=== PATIENT | male | born 1950 | race Caucasian/White ===

== ENCOUNTER 2016-04-06 03:09 | Emergency (ER) | payer MEDICARE ==
[~2016-04-06] VITALS: Ht 180.3 cm; Wt 111.1 kg
[~2016-04-06 03:09] MED LIST: BENA20TA2 PO; DIVA500T2 PO; LAMO200T39 PO; POTA-88 PO; PRIM250T PO; RISP0.252 PO; TAMS-12 PO; ZONI100C6 PO
[2016-04-06] MEDS ORDERED: LEVETIRACETAM (500MG) 500 MG/5 ML VIAL IV ONE (03:28)
[2016-04-06] MEDS ORDERED: IV NS 0.9% 100 ML IV ONE (03:28)
[2016-04-06] MEDS ORDERED: IV SET PRIMARY PUMP SET 1 EA INFUS.SET MC ONE (03:29)
[2016-04-06] MEDS ORDERED: LEVETIRACETAM (500MG) 500 MG in IV NS 0.9% 100 ML IV ONE (03:30)
[2016-04-06] MEDS ORDERED: IV NS 0.9% 1,000 ML ONE (03:32)
[2016-04-06] MEDS ORDERED: IV SET PRIMARY 1 EA INFUS.SET MC ONE (03:32)
[2016-04-06 03:36] LABS: BASOPHILS % (AUTO) 0.5 % (0.0-2.0); DIFF TOTAL % 100 %; EOSINOPHILS # (AUTO) 0.2 /CMM (0.0-0.7); EOSINOPHILS % (AUTO) 3.4 % (0.0-6.0); HEMATOCRIT 39 % (39-51); LYMPHOCYTES # (AUTO) 2.9 /CMM (0.8-4.8); LYMPHOCYTES % (AUTO) 51.9 % (20.0-44.0); MEAN CORPUSCULAR HEMOGLOBIN 30 PG (26.0-33.0); MEAN CORPUSCULAR HGB CONC 34 g/dl (31.0-36.0); MEAN CORPUSCULAR VOLUME 89 fL (80-96); MONOCYTES # (AUTO) 0.5 /CMM (0.1-1.30); NEUTROPHILS % (AUTO) 35.2 % (43.0-81.0); PLATELET COUNT (AUTO) 298 /CMM (150-450); RED BLOOD CELL COUNT(AUTO) 4.38 MIL/uL (4.5-6.0); WHITE BLOOD COUNT (AUTO) 5.6 K/uL (4.3-11.0)
[2016-04-06 03:46] LABS: ANION GAP 11 (5-14); CALCIUM, SERUM 8.8 mg/dL (8.5-10.1); CARBON DIOXIDE 30 mmol/L (21-32); CHLORIDE 97 mmol/L (98-107); CREATININE 0.9 mg/dL (0.6-1.3); GFR 84 mL/min (>60); GLUCOSE 90 mg/dL (74-106); POTASSIUM 4.3 mmol/L (3.5-5.1); SODIUM SERUM 134 mmol/L (136-145); UREA NITROGEN, BLOOD 12 mg/dL (7-18)
[2016-04-06 03:52] LABS: ALANINE AMINOTRANSFERASE 18 U/L (12-78); ALBUMIN 3.3 g/dL (3.4-5.0); ASPARTATE AMINOTRANSFERASE 12 U/L (15-37); BILIRUBIN,DIRECT 0.1 mg/dL (0.0-0.2); BILIRUBIN,TOTAL 0.2 mg/dL (0.2-1.0); INDIRECT BILIRUBIN 0.1 mg/dL (0.0-1.1); TOTAL PROTEIN, SERUM 7.2 g/dL (6.4-8.2)
[2016-04-06] MEDS ORDERED: IV NS 0.9% 1,000 ML BAG IV ONE (04:00)
[2016-04-06 04:08] LABS: INR 0.96 (0.87-1.13); PROTHROMBIN TIME 10.4 SECS (9.5-12.7)
[2016-04-06 04:20] LABS: ADD UA MICROSCOPIC NO; KETONES,URINE NEGATIVE (NEGATIVE); LEUKOCYTE ESTERASE ,URINE NEGATIVE (NEGATIVE)
[2016-04-06 04:50] LABS: CANNABINOID, URINE NEGATIVE (NEGATIVE); PHENCYCLIDINE SCREEN,URINE NEGATIVE (NEGATIVE)
[2016-04-06 04:55] VITALS: BP 143/73
== END 2016-04-06 04:56 | disposition home or self-care (01) ==
LOC: ER 03:11
DX: G40.909 Epilepsy, unspecified, not intractable, without status epilepticus (principal); I10 Essential (primary) hypertension; Z88.8 Allergy status to other drugs, medicaments and biological substances; R79.1 Abnormal coagulation profile
CPT/HCPCS: 36415; 71010; 80048; 80076; 80305; 81001; 82962; 85025; 85730; 93005; 96365; 99285; A4606; G0481; J1953; J7030 ×2; 81000-TC; G6040-TC; Z7610

== ENCOUNTER 2016-04-20 15:33 | Emergency (ER) | payer MEDICARE ==
[~2016-04-20] VITALS: Ht 182.9 cm; Wt 136.1 kg
[~2016-04-20 15:33] MED LIST changes: -RISP0.252 PO; +RISP0.253 PO
[2016-04-20] MEDS ORDERED: HYDROCODONE/APAP 5/325MG 1 EACH TABLET PO ONE (16:00)
[2016-04-20] MEDS ORDERED: DIVALPROEX SODIUM 500 MG TABLET.DR PO ONE ×2 (16:00)
[2016-04-20] MEDS ORDERED: LamoTRIgine 100 MG TABLET PO SCH (16:00)
[2016-04-20 19:06] VITALS: BP 141/68
== END 2016-04-20 19:07 | disposition home or self-care (01) ==
LOC: ER 15:38
DX: S22.31XA Fracture of one rib, right side, initial encounter for closed fracture (principal); R56.9 Unspecified convulsions; I10 Essential (primary) hypertension; Z88.8 Allergy status to other drugs, medicaments and biological substances; W19.XXXA Unspecified fall, initial encounter; Y93.89 Activity, other specified; Y92.89 Other specified places as the place of occurrence of the external cause; Y99.8 Other external cause status
CPT/HCPCS: 71250-TC; A4606; Z7610

== ENCOUNTER 2016-05-03 12:39 | Emergency (ER) | payer MEDICARE ==
[~2016-05-03] VITALS: Ht 182.9 cm; Wt 133.8 kg
[2016-05-03] MEDS ORDERED: MECLIZINE HCL 25 MG TABLET PO ONE (13:00)
[2016-05-03] MEDS ORDERED: MECLIZINE HCL 25 MG TABLET ONE (13:01)
[2016-05-03 13:16] LABS: BASOPHILS % (AUTO) 0.6 % (0.0-2.0); DIFF TOTAL % 100 %; EOSINOPHILS # (AUTO) 0.1 /CMM (0.0-0.7); EOSINOPHILS % (AUTO) 1.9 % (0.0-6.0); HEMATOCRIT 41 % (39-51); HEMOGLOBIN 13.3 g/dL (13.5-17.5); LYMPHOCYTES # (AUTO) 2.1 /CMM (0.8-4.8); LYMPHOCYTES % (AUTO) 32.1 % (20.0-44.0); MEAN CORPUSCULAR HEMOGLOBIN 29 PG (26.0-33.0); MEAN CORPUSCULAR HGB CONC 32 g/dl (31.0-36.0); MEAN CORPUSCULAR VOLUME 89 fL (80-96); MONOCYTES # (AUTO) 0.6 /CMM (0.1-1.30); MONOCYTES % (AUTO) 9.4 % (2.0-12.0); NEUTROPHILS # (AUTO) 3.7 /CMM (1.8-8.9); PLATELET COUNT (AUTO) 389 /CMM (150-450); RED BLOOD CELL COUNT(AUTO) 4.63 MIL/uL (4.5-6.0); WHITE BLOOD COUNT (AUTO) 6.5 K/uL (4.3-11.0)
[2016-05-03 13:26] LABS: ANION GAP 9 (5-14); CALCIUM, SERUM 9.1 mg/dL (8.5-10.1); CARBON DIOXIDE 31 mmol/L (21-32); CHLORIDE 102 mmol/L (98-107); CREATININE 1.1 mg/dL (0.6-1.3); GFR 67 mL/min (>60); GLUCOSE 75 mg/dL (74-106); POTASSIUM 4.4 mmol/L (3.5-5.1); SODIUM SERUM 138 mmol/L (136-145); UREA NITROGEN, BLOOD 15 mg/dL (7-18)
[2016-05-03 13:35] LABS: TROPONIN I < 0.017 ng/mL (0.00-0.056)
[2016-05-03 14:14] LABS: ADD UA MICROSCOPIC NO; KETONES,URINE NEGATIVE (NEGATIVE); LEUKOCYTE ESTERASE ,URINE NEGATIVE (NEGATIVE)
[2016-05-03 16:08] VITALS: BP 122/78
== END 2016-05-03 16:09 | disposition home or self-care (01) ==
LOC: ER 12:41
DX: R53.1 Weakness (principal); G40.909 Epilepsy, unspecified, not intractable, without status epilepticus; I10 Essential (primary) hypertension; F31.9 Bipolar disorder, unspecified; N40.0 Benign prostatic hyperplasia without lower urinary tract symptoms; Z88.8 Allergy status to other drugs, medicaments and biological substances
CPT/HCPCS: 36415; 71010; 80048; 80164; 81001; 84484; 85025; 93005; 99285; A4606; J8597; 81000-TC; Z7610

== ENCOUNTER 2016-08-08 15:47 | Emergency (ER) | payer MEDICARE, MEDICAID ==
[~2016-08-08] VITALS: Ht 175.3 cm; Wt 74.8 kg
--- NOTE | 2016-08-08 16:09 | NUR ---
BIB EMS FROM [facility] FOR BILATERAL LOWER EXTREMITY EDEMA. PLACED ON MONITOR. GOWNED PT VSS AWAITING MD ORDER
[2016-08-08] MEDS ORDERED: AMLO5TAB2 PO (16:11)
[2016-08-08] MEDS ORDERED: DIVA250T6 PO (16:11)
[2016-08-08] MEDS ORDERED: LEVE250T2 PO (16:11)
[2016-08-08] MEDS ORDERED: DOCU-25 PO (16:11)
[2016-08-08] MEDS ORDERED: HYDR-3326 PO (16:11)
[2016-08-08] MEDS ORDERED: SERT25TA5 PO (16:11)
[2016-08-08] MEDS ORDERED: FURO20TA4 PO (16:11)
--- NOTE | 2016-08-08 16:15 | NUR ---
DR ROSEN AT BEDSIDE FOR EVAL
--- NOTE | 2016-08-08 16:19 | NUR ---
POULTRY DEBEAKER AT BEDSIDE BLOOD SAMPLE COLLECTED
[2016-08-08 16:26] LABS: BASOPHILS % (AUTO) 0.6 % (0.0-2.0); EOSINOPHILS # (AUTO) 0.1 /CMM (0.0-0.7); EOSINOPHILS % (AUTO) 2.3 % (0.0-6.0); HEMATOCRIT 36 % (39-51); HEMOGLOBIN 12.4 g/dL (13.5-17.5); LYMPHOCYTES # (AUTO) 2.4 /CMM (0.8-4.8); LYMPHOCYTES % (AUTO) 39.7 % (20.0-44.0); MEAN CORPUSCULAR HEMOGLOBIN 30 PG (26.0-33.0); MEAN CORPUSCULAR HGB CONC 35 g/dl (31.0-36.0); MEAN CORPUSCULAR VOLUME 88 fL (80-96); MONOCYTES # (AUTO) 0.6 /CMM (0.1-1.30); MONOCYTES % (AUTO) 9.9 % (2.0-12.0); NEUTROPHILS # (AUTO) 2.9 /CMM (1.8-8.9); NEUTROPHILS % (AUTO) 47.5 % (43.0-81.0); PLATELET COUNT (AUTO) 316 /CMM (150-450); RDW COEFFICIENT OF VARIATION 13.4 (11.5-15.0); RED BLOOD CELL COUNT(AUTO) 4.09 MIL/uL (4.5-6.0)
[2016-08-08 16:35] LABS: CALCIUM, SERUM 8.7 mg/dL (8.5-10.1); CREATININE 0.8 mg/dL (0.6-1.3); POTASSIUM 4.2 mmol/L (3.5-5.1)
--- NOTE | 2016-08-08 16:40 | NUR ---
HARBOR MASTER AT BEDSIDE FOR EVAL
--- NOTE | 2016-08-08 17:20 | NUR ---
CALLED [facility] FOR AMBULANCE ETA 30-45 MINUTES
[2016-08-08 17:22] VITALS: BP 158/83
--- NOTE | 2016-08-08 17:23 | NUR ---
Patient discharged to home in stable condition. Written and verbal after care instructions given. Patient verbalizes understanding of instruction. Pt going back to [facility] via ambulance
== END 2016-08-08 18:13 | disposition home or self-care (01) ==
LOC: ER 15:49
DX: R60.0 Localized edema (principal); F31.9 Bipolar disorder, unspecified; G40.909 Epilepsy, unspecified, not intractable, without status epilepticus; I10 Essential (primary) hypertension; N40.0 Benign prostatic hyperplasia without lower urinary tract symptoms; Z88.8 Allergy status to other drugs, medicaments and biological substances
CPT/HCPCS: 36415; 80048; 83880; 85025; 93970; 99285; A4606; Z7610

== ENCOUNTER 2016-08-20 10:12 | Emergency (ER) | payer MEDICARE, MEDICAID ==
[~2016-08-20] VITALS: Ht 185.4 cm; Wt 132.9 kg
[~2016-08-20 10:12] MED LIST changes: +AMLO5TAB2 PO; +DIVA250T6 PO; -DIVA500T2 PO; +DOCU-25 PO; +FURO20TA4 PO; +HYDR-3326 PO; +LEVE250T2 PO; -POTA-88 PO; +SERT25TA5 PO
--- NOTE | 2016-08-20 10:32 | NUR ---
FIDEL FROM [facility] DUE TO SEIZURE EPISODE, PATIENT RECEIVED AAO4. APPEARS IN NO APPARENT DISTRESS, RESPIRATION EVEN AND UNLABORED. PATIENT DENIES CHEST PAIN, NO SOB NOTED. SKIN IS WARM TO TOUCH AND NON DIAPHORETIC; PT IS AFEBRILE. VSS. SEIZURE PRECAUTION OBSERVED
--- NOTE | 2016-08-20 10:34 | NUR ---
IV ACCESSED TO LAC 20. BLOOD SAMPLE SENT TO LAB
[2016-08-20 10:39] LABS: BASOPHILS % (AUTO) 0.3 % (0.0-2.0); EOSINOPHILS % (AUTO) 0.8 % (0.0-6.0); HEMATOCRIT 37 % (39-51); HEMOGLOBIN 12.6 g/dL (13.5-17.5); LYMPHOCYTES # (AUTO) 1.6 /CMM (0.8-4.8); LYMPHOCYTES % (AUTO) 27.9 % (20.0-44.0); MEAN CORPUSCULAR HEMOGLOBIN 30 PG (26.0-33.0); MEAN CORPUSCULAR HGB CONC 34 g/dl (31.0-36.0); MEAN CORPUSCULAR VOLUME 89 fL (80-96); MONOCYTES # (AUTO) 0.6 /CMM (0.1-1.30); MONOCYTES % (AUTO) 9.9 % (2.0-12.0); NEUTROPHILS # (AUTO) 3.6 /CMM (1.8-8.9); NEUTROPHILS % (AUTO) 61.1 % (43.0-81.0); PLATELET COUNT (AUTO) 318 /CMM (150-450); RDW COEFFICIENT OF VARIATION 14.3 (11.5-15.0); RED BLOOD CELL COUNT(AUTO) 4.21 MIL/uL (4.5-6.0); WHITE BLOOD COUNT (AUTO) 5.9 K/uL (4.3-11.0)
[2016-08-20 11:20] LABS: CALCIUM, SERUM 9.1 mg/dL (8.5-10.1); POTASSIUM 4.5 mmol/L (3.5-5.1)
--- NOTE | 2016-08-20 11:47 | NUR ---
CALLED FOR FOOD TRAY
--- NOTE | 2016-08-20 12:01 | NUR ---
CALLED [facility] FOR TRANSPORT TO [facility] ETA 90 MIN
[2016-08-20 13:17] VITALS: BP 120/64
[2016-08-24 07:08] LABS: LAMOTRIGINE 6.3 ug/mL (2.0-20.0)
== END 2016-08-20 13:22 ==
LOC: ER 10:13
DX: G40.909 Epilepsy, unspecified, not intractable, without status epilepticus (principal); I10 Essential (primary) hypertension; F31.9 Bipolar disorder, unspecified; N40.0 Benign prostatic hyperplasia without lower urinary tract symptoms; Z88.8 Allergy status to other drugs, medicaments and biological substances
CPT/HCPCS: 36415; 80048; 80164; 82542 ×2; 85025; 99284; A4606; Z7610

== ENCOUNTER 2016-09-22 09:49 | Emergency (ER) | payer MEDICARE, MEDICAID ==
[~2016-09-22] VITALS: Ht 182.9 cm; Wt 113.4 kg
[2016-09-22 10:21] LABS: BASOPHILS % (AUTO) 0.3 % (0.0-2.0); EOSINOPHILS % (AUTO) 0.6 % (0.0-6.0); HEMATOCRIT 42 % (39-51); HEMOGLOBIN 12.6 g/dL (13.5-17.5); LYMPHOCYTES % (AUTO) 15.8 % (20.0-44.0); MEAN CORPUSCULAR HEMOGLOBIN 27 PG (26.0-33.0); MEAN CORPUSCULAR HGB CONC 30 g/dl (31.0-36.0); MEAN CORPUSCULAR VOLUME 88 fL (80-96); MONOCYTES % (AUTO) 7.3 % (2.0-12.0); PLATELET COUNT (AUTO) 358 /CMM (150-450); RDW COEFFICIENT OF VARIATION 13.1 (11.5-15.0); RED BLOOD CELL COUNT(AUTO) 4.74 MIL/uL (4.5-6.0)
[2016-09-22 10:22] LABS: LYMPHOCYTES # (AUTO) 1.1 /CMM (0.8-4.8); MONOCYTES # (AUTO) 0.5 /CMM (0.1-1.30); NEUTROPHILS # (AUTO) 5.4 /CMM (1.8-8.9)
[2016-09-22 10:30] LABS: CALCIUM, SERUM 9.3 mg/dL (8.5-10.1); CARBON DIOXIDE 31 mmol/L (21-32); CHLORIDE 98 mmol/L (98-107); CREATININE 1.1 mg/dL (0.6-1.3); GLUCOSE 89 mg/dL (74-106); POTASSIUM 4.8 mmol/L (3.5-5.1); SODIUM SERUM 134 mmol/L (136-145); UREA NITROGEN, BLOOD 13 mg/dL (7-18)
[2016-09-22 10:34] LABS: INR 0.96 (0.87-1.13)
[2016-09-22 10:35] LABS: ALANINE AMINOTRANSFERASE 16 U/L (12-78); ALBUMIN 3.5 g/dL (3.4-5.0); ALCOHOL, BLOOD < 3 mg/dL (0-0); ALKALINE PHOSPHATASE 127 U/L (46-116); ASPARTATE AMINOTRANSFERASE 15 U/L (15-37); BILIRUBIN,DIRECT 0.1 mg/dL (0.0-0.2); BILIRUBIN,TOTAL 0.3 mg/dL (0.2-1.0); TOTAL PROTEIN, SERUM 7.8 g/dL (6.4-8.2)
[2016-09-22 10:37] LABS: VALPROIC ACID 26 ug/mL (50-100)
--- NOTE | 2016-09-22 11:20 | NUR ---
CALLED [facility] TO FOLLOW UP ON READ OF CTS
--- NOTE | 2016-09-22 11:47 | NUR ---
CALLED RADIOLOGY AND SPOKE WITH VANESSA TO FOLLOW UP ON CHEST X RAY. THEY ARE EXPERIENCING SOME TECHNICAL ISSUES AND SHE IS WORKING ON IT
[2016-09-22] MEDS ORDERED: IV SET PRIMARY PUMP SET 1 EA INFUS.SET MC ONE (11:59)
[2016-09-22] MEDS ORDERED: LEVETIRACETAM (500MG) 1,000 MG in IV NS 0.9% 100 ML IV SCH (12:00)
--- NOTE | 2016-09-22 12:11 | NUR ---
CALLED [facility] FOR TRANSPORT ETA 45 MINUTES
[2016-09-22 13:08] VITALS: BP 131/72
--- NOTE | 2016-09-22 13:09 | NUR ---
Patient discharged to home in stable condition. Written and verbal after care instructions given. Patient verbalizes understanding of instruction. IV removed. Catheter intact and site benign. Pressure and 4x4 applied to site. No bleeding noted. NAD NOTED UPON TRANSPORT OUT.
== END 2016-09-22 13:08 | disposition home or self-care (01) ==
LOC: ER 09:51
DX: G40.909 Epilepsy, unspecified, not intractable, without status epilepticus (principal); M54.2 Cervicalgia; M54.5 Low back pain; M54.6 Pain in thoracic spine; R51 Headache; F31.9 Bipolar disorder, unspecified; I10 Essential (primary) hypertension; M48.06 Spinal stenosis, lumbar region; N40.0 Benign prostatic hyperplasia without lower urinary tract symptoms; Z88.8 Allergy status to other drugs, medicaments and biological substances
CPT/HCPCS: 36415; 70450-TC; 71010-TC; 72125-TC; 72128-TC; 72131-TC; 80048-TC; 80076-TC; 80164-TC; 80305; 85025-TC; 85730-TC; A4606; G0480; J1953; J7030; Z7610

== ENCOUNTER 2016-12-09 05:09 | Emergency (ER) | payer MEDICARE, MEDICAID ==
[~2016-12-09] VITALS: Ht 180.3 cm; Wt 104.3 kg
[~2016-12-09 05:09] MED LIST changes: -AMLO5TAB2 PO; +IBUP-1481 PO; +POTA20TA83 PO
--- NOTE | 2016-12-09 05:11 | NUR ---
PT [facility] FROM [facility]. PER EMS "SEIZURE OR MANAGER"; POSTICTAL; NO TRAUMA NOTED. PT AOX3 RR EVEN AND UNLABORED. NO SOB NOTED. NAD NOTED. NO NVD AT THIS TIME. PT PLACED ON MONITOR WAITING FOR MD GUERRERO.
--- NOTE | 2016-12-09 05:12 | NUR ---
PT PLACED ON SEIZURE PRECAUTION.
--- NOTE | 2016-12-09 05:23 | NUR ---
LABS DRAWNS AT BEDSIDE, SENT TO LAB
--- NOTE | 2016-12-09 05:31 | NUR ---
URINE COLLECTED CALLED FOR DATA WAREHOUSE ADMINISTRATOR
--- NOTE | 2016-12-09 05:32 | NUR ---
RADIOLOGY FOR BED SIDE FOR CXR
--- NOTE | 2016-12-09 05:33 | NUR ---
PT TO RADIOLOGY FOR CT HEAD
[2016-12-09 05:38] LABS: BASOPHILS % (AUTO) 0.5 % (0.0-2.0); EOSINOPHILS # (AUTO) 0.2 /CMM (0.0-0.7); EOSINOPHILS % (AUTO) 1.9 % (0.0-6.0); HEMATOCRIT 37 % (39-51); HEMOGLOBIN 12.4 g/dL (13.5-17.5); LYMPHOCYTES % (AUTO) 25.1 % (20.0-44.0); MEAN CORPUSCULAR HEMOGLOBIN 29 PG (26.0-33.0); MEAN CORPUSCULAR HGB CONC 33 g/dl (31.0-36.0); MEAN CORPUSCULAR VOLUME 88 fL (80-96); MONOCYTES # (AUTO) 0.6 /CMM (0.1-1.30); MONOCYTES % (AUTO) 7.4 % (2.0-12.0); NEUTROPHILS # (AUTO) 5.3 /CMM (1.8-8.9); NEUTROPHILS % (AUTO) 65.1 % (43.0-81.0); PLATELET COUNT (AUTO) 383 /CMM (150-450); RDW COEFFICIENT OF VARIATION 14.5 (11.5-15.0); RED BLOOD CELL COUNT(AUTO) 4.27 MIL/uL (4.5-6.0); WHITE BLOOD COUNT (AUTO) 8.2 K/uL (4.3-11.0)
[2016-12-09 05:40] LABS: CALCIUM, SERUM 8.9 mg/dL (8.5-10.1); CARBON DIOXIDE 24 mmol/L (21-32); CHLORIDE 100 mmol/L (98-107); CREATININE 1.1 mg/dL (0.6-1.3); GLUCOSE 120 mg/dL (74-106); POTASSIUM 4.2 mmol/L (3.5-5.1); SODIUM SERUM 135 mmol/L (136-145); UREA NITROGEN, BLOOD 13 mg/dL (7-18)
[2016-12-09 05:45] LABS: ALANINE AMINOTRANSFERASE 16 U/L (12-78); ALKALINE PHOSPHATASE 119 U/L (46-116); ASPARTATE AMINOTRANSFERASE 15 U/L (15-37); BILIRUBIN,DIRECT 0.1 mg/dL (0.0-0.2); BILIRUBIN,TOTAL 0.3 mg/dL (0.2-1.0); TOTAL PROTEIN, SERUM 7.2 g/dL (6.4-8.2)
--- NOTE | 2016-12-09 05:45 | NUR ---
PT RETURNED FROM CT.
[2016-12-09 05:46] LABS: ALCOHOL, BLOOD < 3 mg/dL (0-0)
[2016-12-09 05:47] LABS: APPEARANCE,URINE CLEAR (CLEAR); BILIRUBIN,URINE NEGATIVE (NEGATIVE); BLOOD, URINE TRACE-INTA Ery/uL (NEGATIVE); COLOR,URINE YELLOW (YELLOW); KETONES,URINE NEGATIVE (NEGATIVE); LEUKOCYTE ESTERASE ,URINE NEGATIVE (NEGATIVE); NITRITE, URINE NEGATIVE (NEGATIVE); PROTEIN,URINE 2+ mg/dl (NEGATIVE); UGLUCOSE NEGATIVE (NEGATIVE); UROBILINOGEN,URINE 0.2 EU/dL (0.2)
[2016-12-09 05:52] LABS: RBC,URINE 0-2 /HPF (0-2); WBC,URINE 0-2 /HPF (0-3)
[2016-12-09 05:53] LABS: BACTERIA,URINE None seen /HPF (None Seen); SQUAMOUS EPITHELIAL CELL,UR Few /HPF (None Seen); URINE AMORPHOUS URATE Few /HPF (None Seen)
--- NOTE | 2016-12-09 06:56 | NUR ---
DR. RADER AT [facility] SPEAKING TO PT REGARDING POC
--- NOTE | 2016-12-09 07:08 | NUR ---
CALLED [facility]; ETA 30 MINUTES
--- NOTE | 2016-12-09 07:16 | NUR ---
REPORT GIVEN TO ZACK YIN AND XIANG FOR [facility]I. VSS. PT APPEARS TO BE COMFORTABLE AT THIS TIME.
--- NOTE | 2016-12-09 07:30 | NUR ---
PT BREAKFAST TRAY SERVED, WAITING FOR TRANSPORT.
--- NOTE | 2016-12-09 08:36 | NUR ---
REPORTS GIVEN TO EMT - PT TRANSFER TO [facility]. Patient discharged to home in stable condition. Written and verbal after care instructions given. Patient verbalizes understanding of instruction. IV removed. Catheter intact and site benign. Pressure and 4x4 applied to site. No bleeding noted.
[2016-12-09 08:40] VITALS: BP 156/90
== END 2016-12-09 08:47 ==
LOC: ER 05:10
DX: G40.909 Epilepsy, unspecified, not intractable, without status epilepticus (principal); F31.9 Bipolar disorder, unspecified; I10 Essential (primary) hypertension; N40.0 Benign prostatic hyperplasia without lower urinary tract symptoms; R41.82 Altered mental status, unspecified
CPT/HCPCS: 36415; 70450-TC; 71010-TC; 80048-TC; 80076-TC; 80305; 81000-TC; 85025-TC; A4606; G0480; Z7610

== ENCOUNTER 2016-12-24 13:53 | Emergency (ER) | payer MEDICARE, MEDICAID ==
[~2016-12-24] VITALS: Ht 182.9 cm; Wt 99.8 kg
[2016-12-24 14:28] LABS: BASOPHILS % (AUTO) 0.6 % (0.0-2.0); EOSINOPHILS # (AUTO) 0.1 /CMM (0.0-0.7); EOSINOPHILS % (AUTO) 1.2 % (0.0-6.0); HEMATOCRIT 35 % (39-51); HEMOGLOBIN 11.8 g/dL (13.5-17.5); LYMPHOCYTES # (AUTO) 1.6 /CMM (0.8-4.8); LYMPHOCYTES % (AUTO) 23.6 % (20.0-44.0); MEAN CORPUSCULAR HEMOGLOBIN 30 PG (26.0-33.0); MEAN CORPUSCULAR HGB CONC 34 g/dl (31.0-36.0); MEAN CORPUSCULAR VOLUME 87 fL (80-96); MONOCYTES # (AUTO) 0.7 /CMM (0.1-1.30); NEUTROPHILS # (AUTO) 4.4 /CMM (1.8-8.9); NEUTROPHILS % (AUTO) 64.6 % (43.0-81.0); PLATELET COUNT (AUTO) 357 /CMM (150-450); RDW COEFFICIENT OF VARIATION 13.8 (11.5-15.0); RED BLOOD CELL COUNT(AUTO) 3.99 MIL/uL (4.5-6.0); WHITE BLOOD COUNT (AUTO) 6.8 K/uL (4.3-11.0)
--- NOTE | 2016-12-24 14:31 | NUR ---
PT TO ED ROOM 04. BIB EMS [facility]IVING S/O LOWER BACK PAIN S/P SLIP AND FALL. A/A/O. NAD. VS WNL. SIDE RAILS UP. HOB ELEVATED. SEEN BY ED PROVIDER/.
[2016-12-24] MEDS ORDERED: MECL-102 PO (14:32)
[2016-12-24] MEDS ORDERED: POLY17PO4 PO (14:32)
[2016-12-24] MEDS ORDERED: KETO15CR TP (14:32)
--- NOTE | 2016-12-24 14:34 | NUR ---
PT UNABLE TO PROVIDE WITH URINE SAMPLE AT THIS TIME. WILL TRY LATER.
[2016-12-24 14:36] LABS: CALCIUM, SERUM 8.9 mg/dL (8.5-10.1); CREATININE 1.3 mg/dL (0.6-1.3); POTASSIUM 4.2 mmol/L (3.5-5.1)
[2016-12-24 14:43] LABS: ALBUMIN 3.1 g/dL (3.4-5.0); BILIRUBIN,DIRECT 0.1 mg/dL (0.0-0.2); BILIRUBIN,TOTAL 0.3 mg/dL (0.2-1.0); TOTAL PROTEIN, SERUM 7.3 g/dL (6.4-8.2)
--- NOTE | 2016-12-24 15:24 | NUR ---
Patient is resting comfortably in bed with eyes closed. Easily aroused. VSS
[2016-12-24 17:13] LABS: APPEARANCE,URINE CLEAR (CLEAR); BILIRUBIN,URINE NEGATIVE (NEGATIVE); BLOOD, URINE NEGATIVE Ery/uL (NEGATIVE); COLOR,URINE YELLOW (YELLOW); KETONES,URINE NEGATIVE (NEGATIVE); LEUKOCYTE ESTERASE ,URINE NEGATIVE (NEGATIVE); NITRITE, URINE NEGATIVE (NEGATIVE); PROTEIN,URINE TRACE mg/dl (NEGATIVE); UGLUCOSE NEGATIVE (NEGATIVE); UROBILINOGEN,URINE 0.2 EU/dL (0.2)
[2016-12-24 17:21] LABS: BACTERIA,URINE Few /HPF (None Seen); RBC,URINE 0-2 /HPF (0-2); SQUAMOUS EPITHELIAL CELL,UR Few /HPF (None Seen); WBC,URINE 0-2 /HPF (0-3)
--- NOTE | 2016-12-24 17:28 | NUR ---
PAGED DR BUSTILLOS.
--- NOTE | 2016-12-24 18:02 | NUR ---
CALLED TRANSPORT ETA 10 MIN PER [facility] TRIP#[id number]
--- NOTE | 2016-12-24 18:30 | NUR ---
Patient discharged in stable condition. Written and verbal after care instructions given. Patient verbalizes understanding of instruction.IV removed. Catheter intact and site benign. Pressure and 4x4 applied to site. No bleeding noted.
[2016-12-24 18:32] VITALS: BP 133/67
== END 2016-12-24 18:33 | disposition home or self-care (01) ==
LOC: ER 13:55
DX: S39.012A Strain of muscle, fascia and tendon of lower back, initial encounter (principal); M25.552 Pain in left hip; M25.551 Pain in right hip; G40.909 Epilepsy, unspecified, not intractable, without status epilepticus; R51 Headache; F31.9 Bipolar disorder, unspecified; I10 Essential (primary) hypertension; N40.0 Benign prostatic hyperplasia without lower urinary tract symptoms; Z88.8 Allergy status to other drugs, medicaments and biological substances; Z66 Do not resuscitate; W01.0XXA Fall on same level from slipping, tripping and stumbling without subsequent striking against object, initial encounter; Y93.89 Activity, other specified; Y92.89 Other specified places as the place of occurrence of the external cause; Y99.9 Unspecified external cause status
CPT/HCPCS: 36415; 70450; 71010; 72100; 73521; 80048; 80076; 81001; 82542; 85025; 93005; 99285; A4606; 81000-TC; Z7610

== ENCOUNTER 2016-12-27 17:01 | Emergency (ER) | payer MEDICARE, MEDICAID ==
[~2016-12-27] VITALS: Ht 182.9 cm; Wt 115.7 kg
[~2016-12-27 17:01] MED LIST changes: -DIVA250T6 PO; -HYDR-3326 PO; +KETO15CR TP; -LEVE250T2 PO; +MECL-102 PO; +POLY17PO4 PO; -POTA20TA83 PO
--- NOTE | 2016-12-27 17:06 | NUR ---
pt bib private ambulance to er bed 10. here for medical eval. per report, frequent falls for the last 4 days. pt is c/o r side lower back/hip pain. ble swelling noted. placed on monitor. nad noted. awaiting md coello.
--- NOTE | 2016-12-27 17:20 | NUR ---
dr rice at bedside for bedside.
--- NOTE | 2016-12-27 18:13 | NUR ---
CALLED [facility] FOR TRANSPORT ETA OF 2100 WAS GIVEN.
--- NOTE | 2016-12-27 21:20 | NUR ---
CALLED [facility] FOR AN UPDATE, ETA OF AMBULANCE IS 30MINS
--- NOTE | 2016-12-27 21:46 | NUR ---
PT TRASPORTED BACK TO [facility] IN STABLE CONDITION.
[2016-12-27 21:47] VITALS: BP 160/84
== END 2016-12-27 21:48 | disposition home or self-care (01) ==
LOC: ER 17:02
DX: M25.551 Pain in right hip (principal); M25.552 Pain in left hip; R60.0 Localized edema; I10 Essential (primary) hypertension; N40.0 Benign prostatic hyperplasia without lower urinary tract symptoms; G89.29 Other chronic pain; F31.9 Bipolar disorder, unspecified; G40.909 Epilepsy, unspecified, not intractable, without status epilepticus; Z88.8 Allergy status to other drugs, medicaments and biological substances; W18.39XA Other fall on same level, initial encounter; Y93.89 Activity, other specified; Y92.89 Other specified places as the place of occurrence of the external cause; Y99.8 Other external cause status
CPT/HCPCS: 99283; A4606; Z7610